=== PATIENT | female | born 1940 | race Caucasian/White ===

== ENCOUNTER 2023-11-17 11:09 | Emergency (ER) | payer OTHER, SELFPAY ==
[2023-11-17 11:11] VITALS: BP 119/66
[2023-11-17 11:13] VITALS: BP 119/66
[2023-11-17 12:00] VITALS: BP 129/66
[2023-11-17 13:00] VITALS: BP 112/55
--- NOTE | 2023-11-17 13:12 | ED.GENMED ---
History of Present Illness
General
Chief Complaint: Bowel Problem
Time Seen by Provider: 11/17/23 11:54
Travel History
Have you had any contact with someone who has COVID-19?: Unable to Answer
Do you have any symptoms of coronavirus? Fever > 100 degrees, chills, cough, shortness of breath, sore throat, loss of taste or smell, muscle aches, or headache?: Unable to Answer
History of Present Illness
History of Present Illness:
83-year-old female presents the emergency department for evaluation of constipation. She has a history of dementia so timeframe is not known. She has a colostomy and has had poor p.o. output for several days apparently. She has received milk of
magnesia according to documentation from [facility] however output has remained minimal. Patient denies any abdominal pain at this time
Past History
Past History
ED Past Medical History: None
ED Past Surgical History: Tonsilectomy
Social History
Tobacco: Non-smoker
Alcohol: None
Drug: None
Personal:
Living: alone
Review of Systems
Review of Systems
Allergies reviewed?: Yes
All Other Systems: ROS reviewed and negative except as documented in HPI and ROS
Phy Exam
Physical Exam
Physical Exam:
GEN: Well appearing, NAD, WDWN
HEENT: Oral mucosa moist, no scleral icterus
Cardiac: Regular rate
Lung: No respiratory distress, no tachypnea
Abdomen: Soft, nontender x 4 quadrants, left lower quadrant ostomy present, small amount of stool in the bag
MSK: No gross deformity or injuries
Skin: Good color, no pallor or jaundice, no rashes
Neuro: AO x3, moves all extremities freely
Psych: Calm, cooperative
Course
Orders/Labs/Results
Orders:
Orders
11/17/23 13:21
Basic Metabolic Panel Urgent
Complete Blood Count/With Diff Urgent
11/17/23 13:52
CT Abd/Pel (IV only)-[facility] only Urgent
Comment:
Reason For Exam: abd distention, poor ostomy output
11/17/23 16:26
Magnesium Citrate [Citroma] 300 ml PO ONCE ONE
Abnormal Lab Results
11/17/23
13:21
RBC 3.86 L 10^6/uL
(4.20-5.40)
Hgb 11.4 L g/dL
(12.0-16.0)
Hct 35.2 L %
(37.0-47.0)
MCHC 32.4 L g/dL
(33.0-37.0)
Abs Immat Gran (auto) 0.1 H 10^3/uL
(0-0.05)
Immature Gran % 0.6 H %
(0-0.5)
Lymphocytes % 13.7 L %
(20.5-51.1)
Eosinophils % 6.1 H %
(0-6)
BUN 22 H mg/dl
(7-17)
11/17/23 13:21
11/17/23 13:21
Vital Signs
Initial and Last Documented VS:
Initial Vital Signs
Temp Pulse Resp BP Pulse Ox
98.2 F 76 16 119/66 98
11/17/23 11:11 11/17/23 11:11 11/17/23 11:11 11/17/23 11:11 11/17/23 11:11
Last Documented Vital Signs
Temp Pulse Resp BP Pulse Ox
98.2 F 73 18 131/63 98
11/17/23 11:11 11/17/23 15:30 11/17/23 15:15 11/17/23 15:00 11/17/23 17:01
MDM/Problems Addressed
MDM/Problems Addressed:
CT confirms lack of bowel obstruction, this is simply constipation. Labs are reassuring. Will give mag citrate as milk of magnesia did not work
*Critical Care Note
Total Time (30-74mins, 75-104mins- exclusive of procedures): Not Applicable
ED Attending Note
-
Portions of this chart may have been created with voice recognition software.� Occasional wrong word or��sound alike� substitutions may have occurred due to the inherent limitations of voice recognition software.
Discharge Plan
Departure
Patient Disposition: Custodial/SNF
Date of Disposition: 11/17/23
Time of Disposition: 16:27
Patient with high blood pressure during this ER visit?: No
Discharge Problem:
Acute constipation
Prescriptions:
No Action
acetaminophen 325 mg Tablet
650 mg PO Q4HWA MDD 3000 mg Qty: 0 0RF
pantoprazole 40 mg Tablet,Delayed Release (Dr/Ec)
40 mg PO DAILY Qty: 0 0RF
ferrous sulfate 325 mg (65 mg iron) tablet,delayed release (DR/EC)
325 mg PO Q48H Qty: 7 0RF
acetaminophen 325 mg Tablet
650 mg PO Q4H MDD 3000 mg PRN (Reason: mild pain/temp>100)
magnesium hydroxide [Milk of Magnesia] 400 mg/5 mL Suspension
30 ml PO Q72H PRN (Reason: if no BM x 3 days)
hydrocortisone [Proctocort] 1 % cream
1 applic topical BID Qty: 28.35 0RF
Referrals:
Juan Miguel Gil MD [Family Provider] -
Interventions
Interventions:
*Risk Screen - Suicide Last Done: 11/17/23 11:11
*General Assessment Last Done: 11/17/23 11:11
*Neglect/Abuse Screening Last Done: 11/17/23 11:11
*ED COVID-19 Vaccine History Last Done: 11/17/23 11:11
CQ-Wdmnfx-Spjauvogzm Assessment Last Done: 11/17/23 11:19
[2023-11-17 13:33] LABS: % Basophils 0.9 % (0-2); % Eosinophils 6.1 % (0-6); % Immature Granulocytes 0.6 % (0-0.5); % Lymphocytes 13.7 % (20.5-51.1); % Monocytes 7.4 % (1.7-9.3); % Neutrophils 71.3 % (42.2-75.2); Absolute Basophils 0.1 10^3/uL (0-0.2); Absolute Eosinophils 0.5 10^3/uL (0-0.7); Absolute Immature Granulocytes 0.1 10^3/uL (0-0.05); Absolute Lymphocytes 1.2 10^3/uL (1.2-3.4); Absolute Monocytes 0.6 10^3/uL (0.1-0.6); Absolute Neutrophils 6.1 10^3/uL (1.4-6.5); Hematocrit 35.2 % (37.0-47.0); Hemoglobin 11.4 g/dL (12.0-16.0); Mean Corp Hgb Conc. 32.4 g/dL (33.0-37.0); Mean Corpuscular Hgb 29.5 pg (27.0-31.0); Mean Corpuscular Volume 91.2 fL (81.0-99.0); Mean Platelet Volume 9.4 fL (7.4-10.4); Nucleated Red Blood Cells % 0 %; Platelet Count 374 10^3/uL (130-400); Red Blood Cell Count 3.86 10^6/uL (4.20-5.40); Red Cell Dist. Width 13.6 % (11.5-14.5); White Blood Cell Count 8.5 10^3/uL (4.8-10.8)
[2023-11-17 13:47] LABS: Blood Urea Nitrogen 22 mg/dl (7-17); Calcium 8.6 mg/dl (8.4-10.2); Carbon Dioxide 30 mmol/L (22-30); Chloride 102 mmol/L (98-107); Glucose 95 mg/dl (70-99); Potassium 4.4 mmol/L (3.5-5.1); Sodium 135 mmol/L (135-145); eGFR > 60.00
[2023-11-17 14:00] VITALS: BP 124/75
[2023-11-17 15:00] VITALS: BP 131/63
[2023-11-17] MEDS: CITROMA 300 ML PO (18:03)
== END 2023-11-17 18:40 ==
LOC: EMR 11:09
PROVIDERS: Physician Assistant; EMERGENCY PHYSICIAN Emergency Medicine; FAMILY PHYSICIAN Family Medicine
DX: K59.09 Other constipation (principal); Z93.3 Colostomy status
CPT/HCPCS: 99284; 74177; 80048; 85025; Q9967